=== PATIENT | female | born 1990 | race Caucasian/White ===

== ENCOUNTER 2019-03-07 21:31 | Emergency (ER) | payer OTHER ==
[~2019-03-07] VITALS: Ht 165.1 cm; Wt 53.6 kg
[2019-03-07 21:34] VITALS: TEMP 97.1
[2019-03-07 22:01] LABS: BASO % 0.3 % (0.0-2.0); EOS % 0.3 % (0-4.0); GRAN # 5.8 (1.4-6.5); GRAN % 83.3 % (42.2-75.2); HEMATOCRIT 40.9 % (37.0-47.0); HEMOGLOBIN 13.8 g/dl (12.5-16.0); LYMPH # 0.6 (1.2-3.4); LYMPH % 8.7 % (20.0-51.0); MEAN CELL VOLUME 94 fl (80.0-100.0); MEAN CORPUSCULAR HEMOGLOBIN 32 pg (27.0-31.0); MEAN CORPUSCULAR HGB CONC 34 g/dl (33.0-37.0); MEAN PLATELET VOLUME 11.6 fl (7.4-10.4); MONO # 0.5 (0.1-0.6); MONO % 7.1 % (1.7-9.3); PLATELET COUNT 258 K/mm3 (130-400); RED BLOOD COUNT 4.34 M/mm3 (4.10-5.30); REDCELL DISTRIBUTION WIDTH-CV 12.2 % (11.5-14.5)
[2019-03-07 22:34] LABS: ALANINE AMINOTRANSFERASE 34 U/L (9-52); ALKALINE PHOSPHATASE 59 U/L (50-136); ANION GAP 10 mmol/L (7-16); AST,SGOT 42 U/L (15-37); BILIRUBIN,TOTAL 0.5 mg/dL (0.0-1.0); BLOOD UREA NITROGEN 14 mg/dL (7-17); CALCIUM 9.2 mg/dL (8.4-10.2); CARBON DIOXIDE 29 mmol/L (22-30); CHLORIDE 100 mmol/L (98-107); CREATININE, serum 0.91 (0.52-1.25); GLUCOSE 136 mg/dL (74-106); LIPASE 90 U/L (23-300); POTASSIUM 3.3 mmol/L (3.4-5.0); SODIUM 139 mmol/L (137-145); TOTAL PROTEIN 7.9 gm/dL (6.4-8.2)
[2019-03-07 22:42] LABS: C-REACTIVE PROTEIN < 0.5 mg/dL (0.0-0.9)
[2019-03-07] MEDS ORDERED: ZOFRAN 4MG T4 MG/TAB PO (22:52)
[2019-03-07 23:06] VITALS: BP 102/60; PULSE 74
== END 2019-03-07 23:10 | disposition home or self-care (01) ==
LOC: COL.ER 21:31
PROVIDERS: Emergency Medicine
DX: R11.2 Nausea with vomiting, unspecified (principal); R10.11 Right upper quadrant pain; R10.12 Left upper quadrant pain; K58.9 Irritable bowel syndrome, unspecified
CPT/HCPCS: J1885; J2405; J7030